=== PATIENT | male | born 1990 | race Caucasian/White ===

== ENCOUNTER 2018-11-13 18:19 | Emergency (ER) | payer OTHER ==
[~2018-11-13] VITALS: Ht 177.8 cm; Wt 84.1 kg
[2018-11-13] MEDS ORDERED: METHOCARBAMOL 750 MG TAB PO ONE (19:00)
[2018-11-13] MEDS ORDERED: PERCOCET 5MG/325MG TAB PO ONE (19:00)
--- NOTE | 2018-11-13 19:25 | REP ---
LUMBAR SPINE, FIVE VIEWS: HISTORY: Trauma. There is no acute fracture or subluxation. The intervertebral discs are normal in height. The facet joints are normal in appearance. IMPRESSION: There is no acute fracture or subluxation. Electronically Signed by Perfecto Farooq MD 11/13/2018 07:26 P
[2018-11-13] MEDS ORDERED: KETOROLAC 60 MG/2 ML VIAL (J1885) IM ONE (19:45)
[2018-11-13] MEDS ORDERED: ROBA500T PO (20:23)
[2018-11-13] MEDS ORDERED: KETO10TAB PO (20:23)
[2018-11-13] MEDS ORDERED: PERC5TAB12 PO (20:23)
[2018-11-13 20:29] VITALS: BP 128/72
== END 2018-11-13 20:31 | disposition home or self-care (01) ==
LOC: M ED 18:19
DX: S39.002A Unspecified injury of muscle, fascia and tendon of lower back, initial encounter (principal); V00.311A Fall from snowboard, initial encounter; Y92.838 Other recreation area as the place of occurrence of the external cause; Y93.23 Activity, snow (alpine) (downhill) skiing, snowboarding, sledding, tobogganing and snow tubing
CPT/HCPCS: 72110; 96372; 99283; J1885